=== PATIENT | female | born 1950 | race Caucasian/White ===

== ENCOUNTER 2018-03-06 06:46 | Day surgery (SDC) | payer BC ==
[~2018-03-06] VITALS: Ht 149.9 cm; Wt 64.4 kg
[2018-03-06] MEDS ORDERED: LIDOCAINE HCL/PF 1% 10 MG/ML 5ML VIAL ONE (07:42)
[2018-03-06] MEDS ORDERED: GENTAMICIN SULF 40MG/ML 2ML VIAL ONE (07:42)
[2018-03-06] MEDS ORDERED: CEFAZOLIN 1000MG PREMIX 50 ML IV ONE (07:42)
[2018-03-06] MEDS ORDERED: BACL-141 PO (08:04)
[2018-03-06] MEDS ORDERED: DEXL60CA3 PO (08:04)
[2018-03-06] MEDS ORDERED: CLOP75TA16 PO (08:04)
[2018-03-06] MEDS ORDERED: AMLO10TA80 PO (08:04)
[2018-03-06] MEDS ORDERED: TRAM50TA PO (08:04)
[2018-03-06] MEDS ORDERED: ASPI-1159 PO (08:04)
[2018-03-06] MEDS ORDERED: NEBI20TA2 PO (08:04)
[2018-03-06] MEDS ORDERED: TRIA1TAB94 PO (08:04)
[2018-03-06] MEDS ORDERED: LOSA50TA20 PO (08:04)
[2018-03-06] MEDS ORDERED: ATOR10TA69 PO (08:04)
[2018-03-06] MEDS ORDERED: ISOS60TA4 PO (08:04)
[2018-03-06 08:19] LABS: INR 1.1; PARTIAL THROMBOPLASTIN TIME 24.4 sec (23.4-31.0); PROTHROMBIN TIME 11.1 sec (9.4-11.6)
[2018-03-06 08:24] LABS: BASOPHILS % 0.3 % (0.0-2.0); EOSINOPHILS % 2.4 % (0.0-5.0); HEMATOCRIT. 33.2 % (36.0-48.0); HEMOGLOBIN. 11.2 g/dL (12.0-16.0); MEAN CORPUSCULAR HEMOGLOBIN 28.8 pg (28.0-32.0); MEAN CORPUSCULAR VOLUME 85.4 fL (81.0-99.0); MEAN PLATELET VOLUME 7.9 fl (7.4-10.4); MONOCYTES % 6.7 % (2.0-8.0); NEUTROPHILS % 65.6 % (40.0-76.0); PLATELET 248 x1000/uL (130-400); RED BLOOD CELL COUNT 3.89 mill/uL (4.2-5.4)
[2018-03-06 08:41] LABS: CHLORIDE 106 mEq/L (98-107)
[2018-03-06] MEDS ORDERED: MIDAZOLAM HCL 2 MG/2 ML VIAL ONE ×2 (08:58→09:10)
[2018-03-06] MEDS ORDERED: FENTANYL CITRATE/PF 50MCG/ML 2ML VIAL ONE (08:58)
[2018-03-06] MEDS ORDERED: GENTAMICIN/NS IRRIGATION 500 ML IR ONE (09:08)
[2018-03-06] MEDS ORDERED: DIPHENHYDRAMINE 50MG/ML VIAL ONE (09:10)
== END 2018-03-06 12:45 | disposition home or self-care (01) ==
LOC: CCL 06:46
PROVIDERS: ATTEND Specialist
DX: Z45.010 Encounter for checking and testing of cardiac pacemaker pulse generator [battery] (principal); I10 Essential (primary) hypertension; E78.4 Other hyperlipidemia; I49.5 Sick sinus syndrome; Z90.12 Acquired absence of left breast and nipple; Z79.82 Long term (current) use of aspirin; Z79.01 Long term (current) use of anticoagulants; Z79.899 Other long term (current) drug therapy
CPT/HCPCS: 33228; 36415; 80048; 85025; 85610; 85730; 93005; 99152; C1785; J0690; J1200; J2250; J3010; J3490; J7050; 33222; J1580